=== PATIENT | female | born 1995 | race Hispanic/Latino ===

== ENCOUNTER 2018-04-05 18:27 | Emergency (ER) | payer MEDICAID ==
[2018-04-05] MEDS ORDERED: KETOROLAC TROMETHAMINE 30MG/ML ONE (19:27)
[2018-04-05 19:34] LABS: APPEARANCE,URINE Cloudy (CLEAR); BASOPHILS % (AUTO) 0.4 % (0.0-5.0); BILIRUBIN,URINE Negative (NEGATIVE); COLOR,URINE Yellow (YELLOW); EOSINOPHILS % (AUTO) 0.4 % (0.0-8.0); GLUCOSE, URINE (UA) Negative (NEGATIVE); HEMATOCRIT 34.6 % (36-48); KETONES,URINE Negative (NEGATIVE); LEUKOCYTE ESTERASE ,URINE Large (NEGATIVE); LYMPHOCYTES % (AUTO) 19.9 % (21.0-51.0); MEAN CORPUSCULAR HEMOGLOBIN 26.3 pg (27.0-33.0); MEAN CORPUSCULAR HGB CONC 32.6 g/dL (32.0-36.0); MEAN CORPUSCULAR VOLUME 80.7 fL (79-99); MONOCYTES % (AUTO) 10.3 % (3.0-13.0); NITRATE,URINE Positive (NEGATIVE); OCCULT BLOOD,URINE Moderate (NEGATIVE); PH,URINE 5.5 (5.0-8.0); PLATELET COUNT (AUTO) 245 K/uL (130-400); PROTEIN,URINE POS 1+ (NEGATIVE); RED BLOOD CELL COUNT(AUTO) 4.29 MIL/uL (4.00-5.50); RED CELL DISTRIBUTION WIDTH 17.3 % (11.0-15.5); WHITE BLOOD COUNT (AUTO) 9.5 K/uL (4.8-10.8)
[2018-04-05] MEDS ORDERED: SODIUM CHLORIDE 0.9% 50 ML IV ONE (19:40)
[2018-04-05] MEDS ORDERED: CEFTRIAXONE SODIUM 1 GM ONE (19:40)
[2018-04-05 19:43] LABS: BACTERIA,URINE Moderate /HPF (None Seen); WBC,URINE 26-50 /HPF (0-1)
[2018-04-05 19:44] LABS: POTASSIUM 3.8 mmol/L (3.5-5.1)
[2018-04-05 19:49] LABS: ALBUMIN 3.4 g/dL (3.5-5.0); BILIRUBIN,TOTAL 0.4 mg/dL (0.2-1.0); TOTAL PROTEIN, SERUM 8.1 g/dL (6.0-8.3)
== END 2018-04-05 20:40 | disposition home or self-care (01) ==
LOC: EDH 18:27
DX: N30.00 Acute cystitis without hematuria (principal)
CPT/HCPCS: 36415; 80053; 81001; 85025; 87077; 87088; 87186; 87804 ×2; 96374; 96375; 99284; J0696; J1885

== ENCOUNTER 2020-05-31 15:11 | Emergency (ER) | payer MEDICAID, OTHER ==
[2020-05-31] MEDS ORDERED: ACETAMINOPHEN-CODEINE 300/30MG TAB ONE (16:22)
[2020-05-31] MEDS ORDERED: ACETAMINOPHEN 325 MG TAB ONE (16:24)
== END 2020-05-31 16:39 | disposition home or self-care (01) ==
LOC: EDH 15:11
DX: S01.01XA Laceration without foreign body of scalp, initial encounter (principal); Z98.890 Other specified postprocedural states; W18.39XA Other fall on same level, initial encounter; Y93.89 Activity, other specified; Y92.89 Other specified places as the place of occurrence of the external cause; Y99.8 Other external cause status
CPT/HCPCS: 12002